=== PATIENT | female | born 1960 | race Caucasian/White ===

== ENCOUNTER 2018-07-02 07:49 | Observation (INO) | payer MEDICAID ==
[~2018-07-02] VITALS: Ht 157.5 cm; Wt 79.9 kg
--- NOTE | ~2018-07-02 | CN ---
PATIENT NAME:MERCEDES CORRALES MEDICAL RECORD: [id number] : 56 LOCATION:. D.2121 ADMIT DATE: 07/02/18 ACCOUNT: [id number] CONSULTING PHYSICIAN: MARIA ESTHER ROSS MD REFERRING PHYSICIAN: KWAME LOONEY MD DATE OF CONSULTATION: 07/02/2018 DIAGNOSES: 1. Chest pain, noncardiac. 2. Murmur. 3. Smoking history. 4. Hypertension. HISTORY OF PRESENT ILLNESS: She presents to the Emergency Room with chest pain. The chest pain has been going on for approximately a week. It is worse if she lies on her left side, of course if she uses her left arm. When she lies on her right side, the chest pain resolves. Her EKG is normal. Her troponin is normal. PHYSICAL EXAMINATION: GENERAL APPEARANCE: Well-nourished, well-developed, appears stated age. Level of distress, comfortable. PSYCHIATRIC: Mental status, alert, normal affect. Orientation, oriented to time, place and person. EYES: Lids and conjunctiva, noninjected. No discharge, no pallor. ENT: Lips, teeth, gums, normal dentition. Oropharynx, no cyanosis, no pallor. NECK: Carotid arteries, bilateral normal upstroke, no bruits, no thrills. JUGULAR VEINS: No jugular venous pressure or distention. CERVICAL LYMPH NODES: Nontender, nonenlarged. THYROID: Not enlarged. Nontender. No nodules. LUNGS: Respiratory effort, unlabored. CHEST: Normal curvature. No thoracic deformity. No chest wall tenderness. Percussion, resonant. Auscultation, clear. No wheezes, no rales, no rhonchi. CARDIOVASCULAR: Precordial exam, nondisplaced. No heaves or pericardial thrills. Rate and rhythm, regular. Heart sounds, normal S1, normal S2. No S3, no gallop, no rub. She has a II/ holosystolic murmur at the left substernal border. Diastolic murmur, not heard. EXTREMITIES: No cyanosis, no edema. Peripheral pulses, full and equal in all extremities, except as noted. No bruits appreciated. ABDOMEN: Soft, nondistended. Normal aorta. No bruit. Nontender. No masses. Liver, nontender, no hepatomegaly. Spleen, nontender, no splenomegaly. MUSCULOSKELETAL: No joint tenderness. No joint swelling. No erythema. NEUROLOGICAL: Normal gait, normal strength, normal tone. SKIN: Warm and dry. OVERALL IMPRESSION: Chest pain. This is not cardiac. No other cardiac workup needs to be ascertained for the chest pain. We will get an echocardiogram secondary to the murmur, but otherwise no other cardiac workup, treatment is necessary. TRANSINT:[id number] Voice Confirmation ID: [id number] DOCUMENT ID: [id number] CONSULT REPORT [id number] MERCEDES CORRALES JEFFREY MD at 1752 CC: [id number] DICTATION DATE: 07/02/18 1533 GUN STOCKER: 07/02/18 1552 ADM IN [place] [address] [place] [address]
--- NOTE | ~2018-07-02 | EC ---
PATIENT:MERCEDES CORRALES DATE OF SERVICE: 07/02/18 SEX: F MEDICAL RECORD: [id number] DATE OF : 56 LOCATION:D.M2 D.212 AGE OF PATIENT: 58 ADMISSION DATE: 07/02/18 REFERRING PHYSICIAN: INTERPRETING PHYSICIAN: MARIA ESTHER ARCINIEGA MD ECHOCARDIOGRAM REPORT ECHO CHARGES 4 ECHO COMPLETE Date: 07/03 CLINICAL DIAGNOSIS: MURMUR ECHOCARDIOGRAPHIC MEASUREMENTS (adult normal given) AC root (d.<3.7cm) 3.2 cm LV Septum d (<1.2 cm> 1.4 cm Valve Excursion 2.1 cm LV Septum (systole) 2.3 cm Left Atria (s.<4.0cm> 4.2 cm LVPW d(<1.2cm) 1.4 cm RV (d.<2.3cm) 2.5 cm LVPW (sytole) 2.2 cm LV diastole(<5.6CM) 4.7 cm MV E-F(>70mm/sec) cm LV systole 2.5 cm LVOT Diameter 1.9 cm MV exc.(>10mm) cm Est.ejection fraction (50-75%) % DOPPLER: LVIT cm/sec A 78.0 cm/sec E 53.0 cm/sec LA cm/sec RVSP 38.0 mmHg LVOT 102 cm/sec AOP1/2T m/s Asc. Ao 158 cm/sec RVOT 57.0 cm/sec RA cm/sec PA 100 cm/sec AV Gradient Peak 10.0 mmHg AV Mean 5.0 mmHg AV Area 1.7 cm MV Gradient Peak 4.5 mmHg MV Mean 1.5 mmHg MV Area cm COMMENTS: Cycle Counter: Dacia HEARDOE Invoice Control Clerk: 1 Dr. Arciniega TAPE# PACS Pericardial Effusion N DATE OF SERVICE: 07/03/2018 FINDINGS: 1. Left ventricular chamber size is within normal limits. Left ventricular systolic function is normal. Overall ejection fraction is estimated at 55%. 2. Left atrium, right atrium, and right ventricle chamber sizes are mildly dilated. Left atrium measures 4.2 cm. 3. Valvular structure have normal structure and motion. 4. Doppler interrogation reveals trace mitral regurgitation and trace tricuspid regurgitation. No other valvular insufficiency or stenosis. Pulmonary systolic ECHOCARDIOGRAM REPORT [id number] MERCEDES CORRALES pressure is normal, estimated at 38 mmHg. 5. No evidence of pericardial effusion or left ventricular thrombus. TRANSINT:[id number] Voice Confirmation ID: [id number] DOCUMENT ID: [id number] MARIA ESTHER ARCINIEGA MD at 1752 CC: KWAME LOONEY MD [id number] DICTATION DATE: 07/03/18 1616 PIPE SUPERVISOR: 07/03/18 1704 ADM IN [place] [address] [place] [address]
[2018-07-02] MEDS ORDERED: LATUDA80 MG PO (07:55)
[2018-07-02] MEDS ORDERED: SINEQUAN50 MG PO (07:56)
[2018-07-02] MEDS ORDERED: PRINIVIL20 MG PO (07:56)
[2018-07-02 08:21] LABS: BASOPHILS 0.2 % (0-2); EOSINOPHILS 1.1 % (0-7); HEMOGLOBIN 13.9 g/dL (12-16); IMMATURE GRANULOCYTES 0.2 % (0-5); LYMPHOCYTES 23.7 % (15-50); MCHC 33.9 g/dL (31.0-37.0); MCV 94.3 fL (80.0-100.0); MEAN PLATELET VOLUME 10.2 fL (7.4-10.4); MONOCYTES 6.4 % (2-11); NEUTROPHILS 68.4 % (40-80); RBC 4.35 10x6/uL (4.00-5.40); RDW 13.1 % (11.5-14.5); WBC 10.4 10x3/uL (4.8-10.8)
[2018-07-02 08:24] LABS: PLATELET COUNT 304 10x3/uL (130-400)
[2018-07-02 08:32] LABS: APTT 27.8 SECONDS (22.8-39.4); INR 0.94 (0.85-1.17); PROTIME 12.2 SECONDS (11.6-15.0)
[2018-07-02 08:33] LABS: D-DIMER-QUANTITATIVE 0.47 ug/mLFEU (0.20-0.54)
[2018-07-02 08:34] LABS: ALBUMIN 3.3 g/dL (3.4-5.0); ALKALINE PHOSPHATASE 125 U/L (46-116); ALT (SGPT) 30 U/L (10-68); BILIRUBIN - TOTAL 0.28 mg/dL (0.2-1.3); CALC OSMOLALITY 280 mosm/kg (275-300); CALCIUM 8.6 mg/dL (8.5-10.1); CHLORIDE - SERUM 103 mmol/L (98-107); CREATININE - SERUM 0.9 mg/dL (0.6-1.3); GLUCOSE 145 mg/dL (74-106); POTASSIUM - SERUM 3.7 mmol/L (3.5-5.1); PROTEIN - SERUM 7.3 g/dL (6.4-8.2); SODIUM 140 mmol/L (136-145); UREA NITROGEN 10 mg/dL (7-18); eGFR NON AFRICAN AMERICAN 68 mL/min (90-120)
[2018-07-02 08:45] LABS: CKMB 0.8 U/L (0.0-3.6); CREATINE KINASE 55 UL (21-215); MAGNESIUM - SERUM 1.9 mg/dL (1.8-2.4)
[2018-07-02 08:46] LABS: TROPONIN-I < 0.017 ng/mL (0.000-0.060)
[2018-07-02 09:00] VITALS: BP 135/78
[2018-07-02 10:00] VITALS: BP 141/80
[2018-07-02 11:00] VITALS: BP 145/72
[2018-07-02 12:43] VITALS: BP 134/78; BMI 34.3
[2018-07-02 14:37] LABS: CKMB 0.7 U/L (0.0-3.6); CREATINE KINASE 42 UL (21-215)
[2018-07-02 14:40] LABS: TROPONIN-I < 0.017 ng/mL (0.000-0.060)
[2018-07-02 15:15] VITALS: BP 128/73
[2018-07-02 20:30] LABS: CKMB 0.6 U/L (0.0-3.6); CREATINE KINASE 37 UL (21-215)
[2018-07-02 20:39] LABS: TROPONIN-I < 0.017 ng/mL (0.000-0.060)
[2018-07-02 22:16] VITALS: BP 129/68
[2018-07-03 06:02] LABS: BASOPHILS 0.2 % (0-2); HEMATOCRIT 39.5 % (36.0-48.0); HEMOGLOBIN 13.1 g/dL (12-16); IMMATURE GRANULOCYTES 0.1 % (0-5); LYMPHOCYTES 19.3 % (15-50); MCH 31.7 pg (26.0-34.0); MCHC 33.2 g/dL (31.0-37.0); MCV 95.6 fL (80.0-100.0); MEAN PLATELET VOLUME 10.1 fL (7.4-10.4); MONOCYTES 7.1 % (2-11); NEUTROPHILS 72.3 % (40-80); PLATELET COUNT 306 10x3/uL (130-400); RBC 4.13 10x6/uL (4.00-5.40); RDW 13.3 % (11.5-14.5); WBC 8.9 10x3/uL (4.8-10.8)
[2018-07-03 06:10] LABS: ALBUMIN 3.2 g/dL (3.4-5.0); ANION GAP 10.9 mmol/L (8-16); BILIRUBIN - TOTAL 0.34 mg/dL (0.2-1.3); CALCIUM 8.2 mg/dL (8.5-10.1); CARBON DIOXIDE 28.9 mmol/L (21.0-32.0); CREATININE - SERUM 0.9 mg/dL (0.6-1.3); POTASSIUM - SERUM 3.8 mmol/L (3.5-5.1); PROTEIN - SERUM 7.2 g/dL (6.4-8.2)
[2018-07-03 06:42] VITALS: BP 143/76
[2018-07-03 13:29] VITALS: Ht 157.5 cm; Wt 79.9 kg
[2018-07-03 13:57] VITALS: BP 154/74
[2018-07-03 20:42] VITALS: BP 104/65
[2018-07-04 00:59] VITALS: BP 119/67
[2018-07-04 05:14] VITALS: BP 140/85
[2018-07-04 07:30] VITALS: BP 119/85
[2018-07-04 11:40] VITALS: BP 113/81
== END 2018-07-04 15:23 | disposition home or self-care (01) ==
LOC: OBSVTIME → D.ER 07:49 → D.M2 10:16 → OBSVTIME 10:16 → D.EDHOLD 10:16 → D.ER 10:16 → D.EDHOLD 11:26 → D.M2 11:26
PROVIDERS: Family Medicine
DX: R07.9 Chest pain, unspecified (principal); M75.102 Unspecified rotator cuff tear or rupture of left shoulder, not specified as traumatic; I10 Essential (primary) hypertension; F17.200 Nicotine dependence, unspecified, uncomplicated; F12.90 Cannabis use, unspecified, uncomplicated

== ENCOUNTER 2018-07-26 05:00 | Day surgery (SDC) | payer MEDICAID ==
[2018-07-25 12:20] LABS: HEMOGLOBIN 12.8 g/dL (12-16); MCH 31.8 pg (26.0-34.0); MCHC 33.7 g/dL (31.0-37.0); MCV 94.3 fL (80.0-100.0); MEAN PLATELET VOLUME 9.5 fL (7.4-10.4); RBC 4.03 10x6/uL (4.00-5.40); RDW 13.4 % (11.5-14.5); WBC 9.1 10x3/uL (4.8-10.8)
[~2018-07-26] VITALS: Ht 157.5 cm; Wt 83.9 kg
--- NOTE | ~2018-07-26 | OP ---
PATIENT NAME: MERCEDES CORRALES MEDICAL RECORD: [id number] :56 LOCATION:DAVID ADMISSION DATE: SURGEON: JANE SULTANA DO DATE OF OPERATION: 07/26/2018 PROCEDURE PERFORMED: Left shoulder arthroscopy with subacromial decompression, distal clavicle excision, mini open rotator cuff repair and bicep tenodesis. PREOPERATIVE DIAGNOSES: Left shoulder rotator cuff tear, SLAP tear, acromioclavicular joint arthritis, subacromial impingement. POSTOPERATIVE DIAGNOSES: Left shoulder rotator cuff tear, SLAP tear, acromioclavicular joint arthritis, subacromial impingement, glenohumeral arthritis. INDICATIONS: Ms. Corrales is a 58-year-old female that was seen in the hospital about a month ago for left-sided shoulder and chest pain. She was worked up for cardiac problems and none were found. They did an MRI of her left shoulder and found that she had had a rotator cuff tear. I was consulted and asked to see the patient, I saw her in the hospital first and informed her of the risks and benefits of having surgery versus not having surgery and she opted to have her rotator cuff repaired. I also informed her that due to the fact that she smokes, she may have a problem with re-tearing, but if she quit smoking this would increase her chances of healing. She was aware that and I was aware of the risks of infection, bleeding, damage to nerve vessels and continued shoulder pain. She was okay with that and signed the consent for the procedure. SURGEON: Jane Sultana DO DESCRIPTION OF PROCEDURE: The patient was given a block by anesthesia in the preoperative area and taken to the operative suite, laid in the right lateral recumbent position with beanbag holding and axillary roll underneath the axilla. She was given 900 mg of clindamycin preoperatively. The left shoulder was prepped and draped in sterile fashion. Once this was prepped and draped, the timeout was performed and everyone was in agreement with the correct site, side, patient and procedure. Then the procedure began, first insufflating the joint with 60 mL of normal saline and then the posterior portal was established with the leveling scalpel. Once the portal was established, the trocar was entered into the shoulder joint itself. The camera was entered. The rotator cuff tear was noted medially of the supraspinatus and so was the SLAP tear. The bicep tendon was frayed as well and she had some grade III chondromalacia on the humerus. The subscapularis tendon was also viewed and seen to be intact. The biceps was then tenotomized with a burner after the anterior portal was established first an 18-gauge spinal needle and then an 11-blade scalpel, and then the subacromial space was entered and a decompression was done as well as the distal clavicle excision after a lateral portal was established. We then opened with a small incision over the lateral portal. Deltoid fascia was opened and careful dissection was made down to the rotator cuff tear itself. Once the rotator cuff tear was encountered, two anchors were used for a medial row and the scorpion device was used to suture tape to further repair and then two lateral row anchors were used securing the repair and getting a nice repair. This site was then irrigated. Deltoid fascia was closed with 2-0 Vicryl in a running fashion and then the skin was closed with 2-0 Vicryl in inverted interrupted and 4-0 Monocryl ran on the skin. The attention was then drawn to the biceps tendon tenodesis site. Incision was made just [facility] the [facility] OPERATIVE REPORT [id number] MERCEDES CORRALES. Dissection was made down to the biceps tendon area and this was removed from the wound and whipstitched and then a drill hole was placed in the humerus with a single button unicortically entered into the humeral canal. The bicep was then tensioned down and oversewn with a free needle, the free end of the sutures and this was tied down as well. Once this was completed, that site was irrigated. The excess suture and tendon was excised and then the skin was closed with 3-0 Vicryl and 4-0 Monocryl ran on the skin; 3-0 Vicryl was run in inverted interrupted. Then, Dermabond was placed on each of the sites and Telfa and Tegaderm placed. The patient was awakened and taken to recovery in stable condition. BLOOD LOSS: Minimal. COMPLICATIONS: None. TRANSINT:[id number] Voice Confirmation ID: [id number] DOCUMENT ID: [id number] JANE SULTANA DO at 1533 CC: [id number] DICTATION DATE: 07/26/1825 SOLAR INSTALLATION TECHNICIAN: 07/26/18 1134 [facility] [place] 07/26/18 [facility] [address] [place] [address]
[~2018-07-26 05:00] MED LIST: LATUDA80 MG PO; PRINIVIL20 MG PO; SINEQUAN50 MG PO
[2018-07-26] MEDS ORDERED: CLONAZEPAM2 MG/TAB (05:38)
[2018-07-26 05:40] VITALS: BP 148/90; Ht 157.5 cm; Wt 83.9 kg
[2018-07-26] MEDS ORDERED: VISTARIL50 MG PO (09:17)
[2018-07-26] MEDS ORDERED: PERCOCET 7.5/321 TAB PO (09:17)
== END 2018-07-26 11:29 | disposition home or self-care (01) ==
LOC: D.OPS 05:00 → D.PAN 09:00 → D.OPS 10:15 → D.PAN 10:15 → D.OPS 11:29
PROVIDERS: Anesthesiology
DX: M75.102 Unspecified rotator cuff tear or rupture of left shoulder, not specified as traumatic (principal); S43.432A Superior glenoid labrum lesion of left shoulder, initial encounter; M13.812 Other specified arthritis, left shoulder; M75.42 Impingement syndrome of left shoulder; X58.XXXA Exposure to other specified factors, initial encounter; Z01.812 Encounter for preprocedural laboratory examination

== ENCOUNTER → 2019-04-17 12:27 | Outpatient (CLI) | payer MEDICAID | END | disposition home or self-care (01) | LOC: D.RAD 12:27 | DX: R05 Cough (principal); F17.200 Nicotine dependence, unspecified, uncomplicated ==